=== PATIENT | female | born 1985 | race Two or more races ===

== ENCOUNTER 2025-05-27 09:39 | Emergency (ER) | payer OTHER ==
[~2025-05-27] VITALS: Ht 157.5 cm; Wt 47.6 kg
[2025-05-27 10:51] LABS: BASO % 0.9 % (0.1-1.2); EOS # 0.08 (0.04-0.54); EOS % 1.1 % (0.7-7.0); LYMPH # 2.18 (1.18-3.74); LYMPH % 31.1 % (19.3-53.1); MEAN PLATELET VOLUME 9.70 fl (9.4-12.4); MONO # 0.46 (0.24-0.82); MONO % 6.6 % (4.7-12.5); NEUT # 4.22 (1.56-6.13); NEUT % 60.2 % (34.0-71.1); RED CELL DISTRIBUTION WIDTH 12.2 % (11.6-14.4)
[2025-05-27 11:23] LABS: ALT/SGPT 30.0 U/L (12-78); AST/SGOT 16.0 U/L (15-37); BILIRUBIN TOTAL 1.38 mg/dL (0.3-1.2); BUN CREA RATIO 26.0 (7.0-25.0); CREATININE SERUM 0.58 mg/dL (0.55-1.02); GFR 115.73; GLOBULINA 3.9 G/DL (2.4-3.5); GLUCOSE FASTING 97.0 mg/dL (65-100); OSMOLALITY SERUM 286.0 MOSM/KG (275-295)
[2025-05-27 11:35] LABS: COVID-19 AG NEGATIVE (NEGATIVE)
[2025-05-27] MEDS ORDERED: MECLIZINE HCL 25 MG TABLET PO ONE ×2 (12:53→13:00)
[2025-05-27 13:31] VITALS: BP 117/66; O2SAT 100
== END 2025-05-27 13:32 | disposition home or self-care (01) ==
LOC: ER 09:39
PROVIDERS: Preventive Medicine Public Health & General Preventive Medicine
DX: R42 Dizziness and giddiness (principal); Z20.822 Contact with and (suspected) exposure to COVID-19